=== PATIENT | male | born 1985 | race Caucasian/White ===

== ENCOUNTER 2017-05-21 20:55 | Inpatient (IN) | payer SELFPAY ==
[~2017-05-21] VITALS: Ht 185.4 cm; Wt 95.3 kg
--- NOTE | 2017-05-21 21:00 | NUR ---
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 NAD NOTED, VSS, RESP EVEN AND UNLABORED, PT WAS PUT ON A MONITOR, WAITING FOR MD RAMOS.
[2017-05-21 21:17] LABS: BASOPHILS # (AUTO) 0.1 /CMM (0.0-0.2); BASOPHILS % (AUTO) 1.6 % (0.0-2.0); EOSINOPHILS % (AUTO) 0.1 % (0.0-6.0); HEMATOCRIT 47 % (39-51); HEMOGLOBIN 16.5 g/dL (13.5-17.5); LYMPHOCYTES # (AUTO) 2.2 /CMM (0.8-4.8); LYMPHOCYTES % (AUTO) 23.6 % (20.0-44.0); MEAN CORPUSCULAR HEMOGLOBIN 32 PG (26.0-33.0); MEAN CORPUSCULAR HGB CONC 35 g/dl (31.0-36.0); MEAN CORPUSCULAR VOLUME 91 fL (80-96); MONOCYTES # (AUTO) 0.5 /CMM (0.1-1.30); MONOCYTES % (AUTO) 5.4 % (2.0-12.0); NEUTROPHILS # (AUTO) 6.4 /CMM (1.8-8.9); NEUTROPHILS % (AUTO) 69.3 % (43.0-81.0); PLATELET COUNT (AUTO) 261 /CMM (150-450); RDW COEFFICIENT OF VARIATION 11.5 (11.5-15.0); RED BLOOD CELL COUNT(AUTO) 5.23 MIL/uL (4.5-6.0); WHITE BLOOD COUNT (AUTO) 9.2 K/uL (4.3-11.0)
[2017-05-21] MEDS ORDERED: ACETYLCYSTEINE IV 6,000 MG/30 ML VIAL IV ONE ×4 (21:30→22:06)
[2017-05-21 21:35] LABS: APPEARANCE,URINE Clear (CLEAR); BILIRUBIN,URINE Negative (NEGATIVE); BLOOD, URINE Negative Ery/uL (NEGATIVE); COLOR,URINE Yellow (YELLOW); KETONES,URINE Trace (NEGATIVE); LEUKOCYTE ESTERASE ,URINE Negative (NEGATIVE); NITRITE, URINE Negative (NEGATIVE); PH,URINE 5.5 (5.0-8.0); PROTEIN,URINE Negative (NEGATIVE); UGLUCOSE Negative (NEGATIVE); UROBILINOGEN,URINE 0.2 EU/dL (0.2)
[2017-05-21 21:37] LABS: CALCIUM, SERUM 9.5 mg/dL (8.5-10.1); CARBON DIOXIDE 25 mmol/L (21-32); CHLORIDE 102 mmol/L (98-107); CREATININE 1.2 mg/dL (0.6-1.3); GLUCOSE 96 mg/dL (74-106); POTASSIUM 3.6 mmol/L (3.5-5.1); SODIUM SERUM 135 mmol/L (136-145); UREA NITROGEN, BLOOD 12 mg/dL (7-18)
[2017-05-21 21:40] LABS: RBC,URINE 0-2 /HPF (0-2); WBC,URINE 0-2 /HPF (0-3)
[2017-05-21 21:41] LABS: BACTERIA,URINE Few /HPF (None Seen); SQUAMOUS EPITHELIAL CELL,UR Few /HPF (None Seen)
[2017-05-21 21:51] LABS: ACETAMINOPHEN 93 ug/ml (10-30); ALANINE AMINOTRANSFERASE 34 U/L (12-78); ALBUMIN 4.3 g/dL (3.4-5.0); ALCOHOL, BLOOD < 3 mg/dL (0-0); ALKALINE PHOSPHATASE 69 U/L (46-116); ASPARTATE AMINOTRANSFERASE 22 U/L (15-37); BILIRUBIN,DIRECT 0.1 mg/dL (0.0-0.2); BILIRUBIN,TOTAL 0.7 mg/dL (0.2-1.0); SALICYLATE 3.3 mg/dL (2.8-20.0)
--- NOTE | 2017-05-21 23:30 | NUR ---
RECEIVED REPORT FROM RYAN VU IN ER.
--- NOTE | 2017-05-21 23:45 | NUR ---
SOFTWARE DESIGN MANAGER NOTES PT ARRIVED ON TO THE UNIT VIA [facility] AT 2345. PT WALKED SELF INTO HOSPITAL BED. PT HAD MUCOMYST IV BOLUS RUNNING. PT HAS A LEFT AC #20 IV INTACT. PER PT IN THE HOSPITAL DUE TO "TAKING TOO MANY PILLS". PT STATED THAT HE WAS UNSURE WHERE HE WAS GOING TO LIVE AND THAT HE AND HIS GIRLFRIEND HAD BROKEN UP. PER REPORT FROM ER PT TOOK BETWEEN 10-20 TYLENOL PM PILLS. AT THIS TIME NO COMPLAINTS OF PAIN, SOB, OR DISTRESS. PT POISON CONTROL PT SHOULD BE OBSERVED AND TELE MONITORED. PT CURRENTLY TELE MONITORED AT SINUS RHYTHM RATE IN THE 70S. ORIENTED THE PATIENT TO THE USE OF THE CALL LIGHT. PT HAS 1:1 SITTER AT BEDSIDE. SAFETY PRECAUTIONS IN PLACE BED IN LOW, LOCKED POSITION, X2 SIDE RAILS, AND CALL LIGHT WITHIN REACH. WILL CONTINUE TO MONITOR.
[2017-05-21 23:50] VITALS: BP 124/77
[2017-05-22] MEDS ORDERED: ONDANSETRON HCL/PF 4 MG/2 ML VIAL IVP PRN (02:00)
[2017-05-22] MEDS ORDERED: LORAZEPAM INJ 2 MG/ML VIAL IV PRN (02:00)
[2017-05-22] MEDS ORDERED: ZOLPIDEM TARTRATE 5 MG TABLET PO PRN (02:00)
[2017-05-22] MEDS ORDERED: Potassium Chloride 20 MEQ in IV NS 0.9% 1,000 ML IV PRN (02:00)
[2017-05-22 04:00] VITALS: BP 110/65
--- NOTE | 2017-05-22 06:00 | NUR ---
RN NOTES FOLLOWED UP WITH POISON CONTROL ( ). PER POISON CONTROL LEVEL SUBTOXIC, NO NEED TO CONTINUE MUCOMYST TREATMENT.
[2017-05-22 06:47] LABS: BASOPHILS % (AUTO) 0.2 % (0.0-2.0); EOSINOPHILS # (AUTO) 0.1 /CMM (0.0-0.7); EOSINOPHILS % (AUTO) 1.1 % (0.0-6.0); HEMATOCRIT 45 % (39-51); HEMOGLOBIN 15.7 g/dL (13.5-17.5); LYMPHOCYTES # (AUTO) 2.4 /CMM (0.8-4.8); LYMPHOCYTES % (AUTO) 31.1 % (20.0-44.0); MEAN CORPUSCULAR HEMOGLOBIN 32 PG (26.0-33.0); MEAN CORPUSCULAR HGB CONC 35 g/dl (31.0-36.0); MEAN CORPUSCULAR VOLUME 92 fL (80-96); MONOCYTES # (AUTO) 0.8 /CMM (0.1-1.30); MONOCYTES % (AUTO) 10.3 % (2.0-12.0); NEUTROPHILS # (AUTO) 4.4 /CMM (1.8-8.9); NEUTROPHILS % (AUTO) 57.3 % (43.0-81.0); PLATELET COUNT (AUTO) 235 /CMM (150-450); RDW COEFFICIENT OF VARIATION 12.5 (11.5-15.0); RED BLOOD CELL COUNT(AUTO) 4.87 MIL/uL (4.5-6.0); WHITE BLOOD COUNT (AUTO) 7.6 K/uL (4.3-11.0)
--- NOTE | 2017-05-22 06:48 | NUR ---
RN CLOSING NOTES PT SLEEPING IN BED. EASILY AWOKEN. 1:1 SITTER AT BEDSIDE. PT HAS A LEFT AC #20 IV INTACT AND RUNNING KCL @90ML/HR. NO COMPLAINTS OF PAIN, SOB, OR DISTRESS. PT CURRENTLY TELE MONITORED AT SINUS RHYTHM RATE IN THE 60S. SAFETY PRECAUTIONS IN PLACE BED IN LOW, LOCKED POSITION, X2 SIDE RAILS, AND CALL LIGHT WITHIN REACH. WILL ENDORSE TO DAY SHIFT NURSE FOR CONTINUITY OF CARE.
[2017-05-22 07:02] LABS: THYROID STIMULATING HORMONE 1.259 uIU/mL (0.358-3.74)
[2017-05-22 07:04] LABS: ALBUMIN 3.8 g/dL (3.4-5.0); BILIRUBIN,TOTAL 0.7 mg/dL (0.2-1.0); CALCIUM, SERUM 9.1 mg/dL (8.5-10.1); CREATININE 1.2 mg/dL (0.6-1.3); MAGNESIUM 2.1 mg/dL (1.8-2.4); PHOSPHORUS 3.6 mg/dL (2.5-4.9); POTASSIUM 3.6 mmol/L (3.5-5.1); TOTAL PROTEIN, SERUM 7.4 g/dL (6.4-8.2)
--- NOTE | 2017-05-22 07:25 | NUR ---
RN OPENING NOTES 1:1 SITTER IS AT BEDSIDE. ENVIRONMENT IS SAFE. PT. IS A&OX4. BREATHING UNLABORED, AND EVENLY ON ROOM AIR. NO S/S OF ACUTE DISTRESS. IV FLUIDS RUNNING AT 90ML/HR. BED IS IN LOWEST, AND LOCKED POSITION. 2 SIDE RAILS UP AND INSTRUCTED PT. TO USE CALL LIGHT FOR ASSISTANCE. ALL NEEDS MET. WILL CONTINUE TO ASSESS AND MONITOR.
[2017-05-22] MEDS ORDERED: PANTOPRAZOLE 40 MG TABLET.DR PO SCH (07:30)
[2017-05-22 08:00] VITALS: BP 108/64
--- NOTE | 2017-05-22 08:00 | NUR ---
RN NOTES PT. HAS 1:1 SITTER, PT. DENIES SUICIDAL IDEATION, NO SUICIDAL PLAN. PT. DENIES PLAN TO HURT OTHERS. PT. IS IN A SAFE ENVIRONMENT.
[2017-05-22 09:00] VITALS: BP 108/64
[2017-05-22] MEDS ORDERED: LISINOPRIL (10MG) 10 MG TABLET PO SCH (09:00)
--- NOTE | 2017-05-22 11:00 | NUR ---
SPD TECH NOTES PT. WAS DISCHARGED IN MEDICALLY STABLE CONDITION, PT.'S LEFT WITH MOTHER ALONG SIDE. DISCHARGE INSTRUCTIONS WERE GIVEN WITH EDUCATION, PT. VERBALIZED UNDERSTANDING. BELONGINGS LIST WAS CHECKED AND SIGNED. DISCHARGE PACKET WAS GIVEN TO PT. CIGARETTES, AND WAGON WASHER WAS GIVEN BACK. ID BAND, AND IV WAS REMOVED WITHOUT COMPLICATIONS. ALL QUESTIONS ANSWERED.
--- NOTE | 2017-05-25 11:39 | NUR ---
CHASE received a voicemail message from CHASE Guerrero for [employer] inquiring about this pts whereabouts. Kinsey was inquiring if this pt was on a 5150 hold after being brought to the emergency room on 05/21/17 for having ingested pills. CHASE Euceda was inquiring due to safety concerns (pt has weapons in his home). CHASE contacted Kinsey Cordoba and informed her that pt was discharged on 05/22/17. CHASE also informed her that Dr. Majano had conducted a psychological assessment and as a result did not place him on hold. CHASE was informed by Beryl that because pt was not on a 5150 hold there was nothing they could do regarding guns (i.e remove guns from pts home). CHASE made herself available in the event other information was required.
== END 2017-05-22 11:30 | disposition home or self-care (01) | DRG 918 ==
LOC: ER 20:57 → TELE 23:22 → MED 05-22 09:42
PROVIDERS: ADMIT Internal Medicine; ATTEND Internal Medicine
DX: T39.1X2A Poisoning by 4-Aminophenol derivatives, intentional self-harm, initial encounter (principal); F32.2 Major depressive disorder, single episode, severe without psychotic features; T14.91XA Suicide attempt, initial encounter; E66.9 Obesity, unspecified; E87.6 Hypokalemia; Z88.0 Allergy status to penicillin; Z91.5 Personal history of self-harm; Z68.27 Body mass index [BMI] 27.0-27.9, adult; Y92.009 Unspecified place in unspecified non-institutional (private) residence as the place of occurrence of the external cause; F17.200 Nicotine dependence, unspecified, uncomplicated
CPT/HCPCS: 36415; 80048-TC; 80053-TC; 80061-TC; 80076-TC; 80305; 81000-TC; 83735-TC; 84100-TC; 84443-TC; 85025-TC; 87081-TC; A4606; G0480; J0132; J3480; J7030; J7060; Z7610